=== PATIENT | female | born 1995 | race Caucasian/White ===

== ENCOUNTER 2016-11-12 17:14 | Emergency (ER) | payer BC ==
[2016-11-12 17:22] VITALS: TEMP 98.4; BMI 29.5
--- NOTE | 2016-11-12 18:06 | DIRPT ---
CLINICAL DATA: Dyspnea with reported pneumothorax EXAM: CHEST 2 VIEW COMPARISON: 09/12/2015 FINDINGS: The heart size and mediastinal contours are within normal limits. Both lungs are clear. The visualized skeletal structures are unremarkable. IMPRESSION: No active cardiopulmonary disease.Note: There is no evidence of pneumothorax. Consider performing expiratory chest radiograph, or CT thorax, to increase sensitivity for pneumothorax if there is clinical suspicion. Electronically Signed By: Guero Stein M.D. On: 11/12/2016 18:04
[2016-11-12] MEDS ORDERED: Pharmacy Review for Metformin - IV Contrast Given SCH (19:00)
--- NOTE | 2016-11-12 19:14 | EDPRACDOC ---
- General Information Chief Complaint: Dyspnea/Resp distress Stated Complaint: ? PUNCTURED LUNG SHOB OF BREATH Time Seen by Provider: 11/12/16 17:56 Information Source: Patient Mode Of Arrival: Car Home Medications: Home Medications Acetaminophen with Codeine [TYLENOL WITH CODEINE; [employer] with Codeine] 5 ml PO Q4-6H PRN #120 ml 11/12/16 Albuterol/Ipratropium Neb [Duoneb] 3 ml NEB Q6H PRN 11/12/16 Azelastine/Fluticasone [Dymista Nasal [place]] 1 spray MANDI BID 11/12/16 Beclomethasone Dipropionate [Qvar] 1 puff INH BID 11/12/16 Benzonatate [Tessalon] 100 mg PO TID #20 per 11/12/16 Levofloxacin [Levaquin] 500 mg PO .DAILY SEE COMMENTS 11/12/16 Norgestimate-Ethinyl Estradiol [Tri-Previfem] 1 tab PO DAILY 11/12/16 Omeprazole 40 mg PO DAILY 11/12/16 Prednisone [Deltasone, Orasone] 10 mg PO DIR 11/12/16 Trazodone HCl [Desyrel] 50 mg PO QHS PRN 11/12/16 Allergies/Adverse Reactions: Allergies Allergy/AdvReac Type Severity Reaction Status Date / Time Penicillins Allergy Intermediate Hives* Verified 09/12/15 17:43 - History of Present Illness Onset: 3 WEEKS HPI: PT PRESENTS TODAY WITH 3 WEEKS OF COUGH/CONGESTION AND MCDANIEL. PT STATES SHE INITIALLY SAW HER PCP AND WAS DX WITH BRONCHITIS, GIVEN LEVAQUIN AND PREDNISONE. STATES SHE INITIALLY SAW IMPROVEMENT, BUT THEN SHORTLY DECLINED AFTER COMPLETION OF MEDICATIONS. STATES SHE RETURNED TO HER PCP, WHO SENT HER TO DR. WILLIS. LAZARO DID AN XRAY IN HIS OFFICE AND THOUGHT HE SAW A PNEUMOTHORAX ON CXR AND SENT PT HERE FOR EVALUATION. PT STATES SHOB ON EXERTION. NO OTHER COMPLAINTS. PT DOES NOT APPEAR TO BE IN DISTRESS. Shortness of Breath: Moderate Relevant History: Reports: Asthma, Other (BRONCHITIS) Cough: Reports: Non-productive Rhinorrhea: Reports: None Ear Symptoms: Reports: None SOB Worsens with: Reports: Exertion, Coughing, MCDANIEL SOB Improves with: Reports: Rest Associated Signs and symptoms: Reports: Cough ED Past Medical History - History Reviewed Yes Nurses notes reviewed and agree except as marked - Patient Medical History GI/ History: Reports: Gastroesophageal Reflux Psychological History: Denies: Depression Surgical History: Reports: Tonsillectomy/Adnoidectomy. Denies: Hysterectomy - Social Medical History Smoking Status: Never smoker EDM Review of Systems - Review of Systems ROS Negative Except as Marked: Yes All systems reviewed and were negative except as marked Constitutional: No Symptoms Reported Eyes: No Symptoms Reported Ears: No Symptoms Reported Throat: No Symptoms Reported Nose: Congestion Respiratory: Cough, Shortness of Breath Cardiovascular: No Symptoms Reported Gastrointestinal: No Symptoms Reported Neurological: No Symptoms Reported Musculoskeletal: No Symptoms Reported Integumentary: No Symptoms Reported - Physical Exam Constitutional: Alert (Awake), No apparent distress Oriented to: Time, Person, Place Last recorded Vital Signs: Last Vital Signs Temp 98.4 F 11/12/16 17:20 Pulse 110 11/12/16 17:20 Resp 20 11/12/16 17:20 BP 134/71 11/12/16 17:20 Pulse Ox 97 11/12/16 17:20 Oxygen Pulse Oxygen Saturation 97 O2 Device Room Air Oxygen Flow Rate Fraction of Inspired Oxygen ( FIO2) - HEENT Head: Normal Eye Exam: Normal Neck: Normal, Denies Pain, Midline - Respiratory/Cardiovascular Respiratory: Normal - CTA Cardiovascular: Tachycardia - GI Palpation: Normal Tenderness: Non tender - Musculoskeletal Back: Normal Extremities: Normal - Integumentary Skin: Normal Lymphatics: Normal - Neurologic Cerebellar: Normal Mood Description: Normal Thought: Coherent Perception: Normal ED SOB MDM - Re-evaluation Re-evaluation 1 Re-evaluation Time: 19:54 Re-evaluation: PT TEXTING WHILE HERE. NO PERTINENT FINDINGS ON IMAGING. OK FOR HOME. - Results Result Diagrams: 11/12/16 19:00 11/12/16 19:00 Decision Time to Discharge: 19:54 - Departure Disposition: Home Condition: Stable Final Diagnosis: Shortness of breath Instructions: Acetaminophen/Codeine (By mouth) Education/Counseling Given To: Patient Education/Counseling Given Regarding: Diagnosis, Treatment, Follow Up Referrals: Colby Benítez II, MD [Primary Care Provider] - One Week Prescriptions: Acetaminophen with Codeine [TYLENOL WITH CODEINE; [employer] with Codeine] 5 ml PO Q4-6H PRN #120 ml PRN Reason: Pain Benzonatate [Tessalon] 100 mg PO TID #20 per Additional Instructions: REST AND PLENTY OF FLUIDS. CONTINUE FOLLOW UP WITH DR. WILLIS IF SYMPTOMS PERSIST.
[2016-11-12 19:24] LABS: BLOOD UREA NITROGEN 16 MG/DL (7-17); CALC CORRECTED 9.4 MG/DL (8.4-10.2); CALCIUM 9.1 MG/DL (8.4-10.2); CALCULATED OSMOLALITY 270 MOs/Kg (270-290); CHLORIDE 104 mEq/L (98-107); GLUCOSE 90 MG/DL (70-99); SODIUM LEVEL 140 mEq/L (137-146); TOTAL PROTEIN 6.5 G/DL (6.3-8.2)
[2016-11-12 19:36] LABS: MPV 8.5 fL (7.4-10.4)
--- NOTE | 2016-11-12 19:42 | DIRPT ---
CLINICAL DATA: Acute onset of shortness of breath. Recently diagnosed bronchitis. EXAM: CT ANGIOGRAPHY CHEST WITH CONTRAST TECHNIQUE: Multidetector CT imaging of the chest was performed using the standard protocol during bolus administration of intravenous contrast. Multiplanar CT image reconstructions and MIPs were obtained to evaluate the vascular anatomy. CONTRAST: 80 mL of Isovue 370 IV contrast COMPARISON: Chest radiograph performed earlier today at 5:24 p.m. FINDINGS: There is no evidence of pulmonary embolus. The lungs are clear bilaterally. There is no evidence of significant focal consolidation, pleural effusion or pneumothorax. No masses are identified; no abnormal focal contrast enhancement is seen. The mediastinum is unremarkable in appearance. No mediastinal lymphadenopathy is seen. No pericardial effusion is identified. The great vessels are grossly unremarkable. No axillary lymphadenopathy is seen. The visualized portions of the thyroid gland are unremarkable in appearance. The visualized portions of the liver and spleen are unremarkable. The visualized portions of the pancreas, stomach, adrenal glands and kidneys are within normal limits. No acute osseous abnormalities are seen. Review of the MIP images confirms the above findings. IMPRESSION: No evidence of pulmonary embolus. Lungs clear bilaterally. Electronically Signed By: Puneet Victor M.D. On: 11/12/2016 19:39
[2016-11-12 19:58] LABS: SEG NEUTROPHIL 64 % (45-76); TOTAL CELL COUNT 100
[2016-11-12 20:18] VITALS: BP 137/88; PULSE 72
== END 2016-11-12 20:14 | disposition home or self-care (01) ==
LOC: ED 17:14
DX: R06.02 Shortness of breath (principal)
CPT/HCPCS: 36415; 71020; 71275; 80053; 85007; 85027; 99283; A9698